=== PATIENT | male | born 1975 | race Hispanic/Latino ===

== ENCOUNTER 2021-10-24 10:39 | Emergency (ER) | payer SELFPAY ==
[~2021-10-24] VITALS: Ht 167.6 cm; Wt 65.8 kg
[2021-10-24 10:55] VITALS: BP 108/75
[2021-10-24] MEDS ORDERED: [UNRECOGNIZED DRUG - CODE] MC (11:40)
== END 2021-10-24 11:48 | disposition home or self-care (01) ==
LOC: EDH 10:39
DX: S63.601A Unspecified sprain of right thumb, initial encounter (principal); X58.XXXA Exposure to other specified factors, initial encounter; Y93.89 Activity, other specified; Y92.89 Other specified places as the place of occurrence of the external cause; Y99.8 Other external cause status
CPT/HCPCS: 29125; 73140

== ENCOUNTER 2024-04-01 16:27 | Emergency (ER) | payer OTHER ==
[~2024-04-01] VITALS: Ht 167.6 cm; Wt 68.5 kg
[~2024-04-01 16:27] MED LIST: [UNRECOGNIZED DRUG - CODE] MC
[2024-04-01 16:47] VITALS: BP 118/66; PULSE 74; RESP 18; O2SAT 97
[2024-04-01] MEDS: IBUPROFEN 800 MG TAB PO ONE (16:53)
[2024-04-01] MEDS ORDERED: IBUP-2077 PO (18:02)
== END 2024-04-01 18:10 | disposition home or self-care (01) ==
LOC: EDH 16:27
DX: S62.626A Displaced fracture of middle phalanx of right little finger, initial encounter for closed fracture (principal); Z98.890 Other specified postprocedural states; W23.0XXA Caught, crushed, jammed, or pinched between moving objects, initial encounter; Y93.89 Activity, other specified; Y92.89 Other specified places as the place of occurrence of the external cause; Y99.8 Other external cause status
CPT/HCPCS: 29130; 73140